=== PATIENT | female | born 1985 | race American Indian/Alaskan Native ===

== ENCOUNTER 2017-05-12 15:02 | Emergency (ER) | payer MEDICAID, OTHER ==
[2017-05-12] MEDS ORDERED: Ondansetron 4 MG/2 ML SDV IV ONE (16:35)
[2017-05-12] MEDS ORDERED: Ketorolac 30 MG/ML SDV IVPUSH ONE (16:35)
[2017-05-12] MEDS ORDERED: Sodium Chloride 0.9% 10 ML Syringe FLUSH PRN (16:35)
[2017-05-12] MEDS ORDERED: diphenhydrAMINE 50 MG/ML SDV IVPUSH ONE (16:35)
[2017-05-12] MEDS ORDERED: Sodium Chloride 0.9% 1,000 ML IV ONE (16:35)
--- NOTE | 2017-05-12 16:36 | EDM.PDOC ---
ED HPI GENERAL MEDICAL PROBLEM - General Chief Complaint: Abdominal Pain Stated Complaint: ABD PAINS, GALLBLADDER, [id number] Time Seen by Provider: 05/12/17 16:25 Source of Information: Reports: Patient History Limitations: Reports: No Limitations - History of Present Illness INITIAL COMMENTS - FREE TEXT/NARRATIVE: Patient comes emergency Department today with complaints of a gallbladder attack. She has noted over the past 2 days to have right upper quadrant pain which is been intermittent but now is constant today. At some nausea and vomited last night a couple of times. No vomiting today. No diarrhea or hematochezia. No black or tarry stools. She does have a history of cholelithiasis. Her last attack was approximately November of last year. She does complain of a subjective fever and chills. She did not check her temperature. She has not taken anything for pain. She denies chest pain towards breath difficulty breathing. Her right upper quadrant pain does radiate to her back on the right side. She denies any hematuria dysuria or urinary frequency. - Related Data Allergies Allergy/AdvReac Type Severity Reaction Status Date / Time No Known Allergies Allergy Verified 12/14/16 13:55 Home Meds: Home Meds PNV95/Ferrous Fumarate/FA [ Tablet] 1 tab PO DAILY 12/14/16 [History] Past Medical History - Past Health History Medical/Surgical History: Denies Medical/Surgical History Gastrointestinal History: Reports: [employer]ICAL DIRECTOR History: Reports: Other OB/BYN History: large uterine window - Past Surgical History Female Surgical History: Reports: Section Social & Family History - Tobacco Use Smoking Status *Q: Current Every Day Smoker Years of Tobacco use: 10 Packs/Tins Daily: 0.5 Used Tobacco, but Quit: No Second Hand Smoke Exposure: Yes - Alcohol Use Days Per Week of Alcohol Use: 0 Number of Drinks Per Day: 6 Total Drinks Per Week: 0 - Recreational Drug Use Recreational Drug Use: Yes Drug Use in Last 12 Months: Yes Recreational Drug Type: Reports: Methamphetamine Recreational Drug Use Frequency: Patient Refuses To Answer - Living Situation & Occupation Living situation: Reports: with Family Occupation: Employed ED ROS GENERAL - Review of Systems Review Of Systems: ROS reveals no pertinent complaints other than HPI. ED EXAM, GI/ABD - Physical Exam Exam: See Below Exam Limited By: No Limitations General Appearance: Alert, WD/WN, Mild Distress Ears: Normal External Exam Nose: Normal Inspection Throat/Mouth: Normal Inspection, Normal Lips Head: Atraumatic, Normocephalic Neck: Normal Inspection, Supple Respiratory/Chest: No Respiratory Distress, Lungs Clear, Normal Breath Sounds, No Accessory Muscle Use Cardiovascular: Normal Peripheral Pulses, Regular Rate, Rhythm GI/Abdominal Exam: Soft, No Organomegaly, No Distention, No Abnormal Bruit, Tender (Tenderness to the right upper quadrant with positive Mehta sign.). No : Normal Bowel Sounds (Hypoactive), Guarding, Rigid, Rebound, Hernia (Female) Exam: Deferred Rectal (Female) Exam: Deferred Back Exam: Normal Inspection, Full Range of Motion. No: CVA Tenderness (L), CVA Tenderness (R) Extremities: Normal Inspection, Normal Range of Motion, Non-Tender, Normal Capillary Refill Neurological: Alert, Oriented, CN II-XII Intact, Normal Reflexes Psychiatric: Normal Affect, Normal Mood Skin Exam: Warm, Dry, Intact, Normal Color, No Rash Lymphatic: No Adenopathy Course - Vital Signs Last Recorded V/S: Last Vital Signs Temp 37.1 C 05/12/17 16:55 Pulse 89 05/12/17 16:55 Resp 18 05/12/17 16:55 BP 125/65 05/12/17 16:55 Pulse Ox 99 05/12/17 16:55 - Orders/Labs/Meds Orders: Active Orders 24 hr Category Date Time Status Peripheral IV Care [RC] . DIRECTED Care 05/12/17 16:36 Active UA W/MICROSCOPIC [URIN] Stat Lab 05/12/17 16:19 Results Sodium Chloride 0.9% [Saline Flush] Med 05/12/17 16:35 Active 10 ml FLUSH ASDIRECTED PRN Peripheral IV Insertion Adult [OM.PC] Stat Oth 05/12/17 16:35 Ordered Medication Orders Sodium Chloride (Saline Flush) 10 ml FLUSH ASDIRECTED PRN PRN Reason: Keep Vein Open Labs: Laboratory Tests 05/12/17 05/12/17 05/12/17 Range/Units 16:19 17:08 17:08 WBC 6.7 (5.0-10.0) 10^3/uL RBC 4.81 (4.2-5.4) 10^6/uL Hgb 11.9 L (12.0-16.0) g/dL Hct 35.9 L (37.0-47.0) % MCV 74.6 L D (80-100) fL MCH 24.7 L (27.0-34.0) pg MCHC 33.1 (33.0-35.0) g/dL Plt Count 324 (150-450) 10^3/uL Neut % (Auto) 53.7 (42.2-75.2) % Lymph % (Auto) 38.4 (20.5-50.1) % [place] % (Auto) 6.6 (2-8) % Eos % (Auto) 1.0 (1.0-3.0) % Baso % (Auto) 0.3 (0.0-1.0) % Sodium 137 (135-145) mmol/L Potassium 3.5 L (3.6-5.0) mmol/L Chloride 104 (101-111) mmol/L Carbon Dioxide 24.0 (21.0-31.0) mmol/L Anion Gap 12.5 BUN 7 (7-18) mg/dL Creatinine 0.6 (0.6-1.3) mg/dL Est Cr Clr Drug Dosing 113.41 mL/min Estimated GFR (MDRD) > 60 BUN/Creatinine Ratio 11.66 Glucose 109 H (74-105) mg/dL Calcium 9.4 (8.4-10.2) mg/dl Total Bilirubin 0.4 (0.2-1.0) mg/dL AST 62 H (10-42) IU/L ALT 63 H (10-60) IU/L Alkaline Phosphatase 103 (42-121) IU/L C-Reactive Protein (0.0-1.3) mg/dL Total Protein 7.9 (6.7-8.2) g/dl Albumin 4.0 (3.2-5.5) g/dl Globulin 3.9 Albumin/Globulin Ratio 1.03 Lipase 28 (22-51) U/L Urine Color Yellow (YELLOW) Urine Appearance Clear (CLEAR) Urine pH 5.5 (5.0-9.0) Ur Specific [place] 1.020 (1.005-1.030) Urine Protein Negative (NEGATIVE) Urine Glucose (UA) Negative (NEGATIVE) Urine Ketones Negative (NEGATIVE) Urine Occult Blood Moderate H (NEGATIVE) Urine Nitrite Negative (NEGATIVE) Urine Bilirubin Negative (NEGATIVE) Urine Urobilinogen 0.2 (0.2-1.0) mg/dL Ur Leukocyte Esterase Negative (NEGATIVE) 05/12/17 Range/Units 17:08 WBC (5.0-10.0) 10^3/uL RBC (4.2-5.4) 10^6/uL Hgb (12.0-16.0) g/dL Hct (37.0-47.0) % MCV (80-100) fL MCH (27.0-34.0) pg MCHC (33.0-35.0) g/dL Plt Count (150-450) 10^3/uL Neut % (Auto) (42.2-75.2) % Lymph % (Auto) (20.5-50.1) % [place] % (Auto) (2-8) % Eos % (Auto) (1.0-3.0) % Baso % (Auto) (0.0-1.0) % Sodium (135-145) mmol/L Potassium (3.6-5.0) mmol/L Chloride (101-111) mmol/L Carbon Dioxide (21.0-31.0) mmol/L Anion Gap BUN (7-18) mg/dL Creatinine (0.6-1.3) mg/dL Est Cr Clr Drug Dosing mL/min Estimated GFR (MDRD) BUN/Creatinine Ratio Glucose (74-105) mg/dL Calcium (8.4-10.2) mg/dl Total Bilirubin (0.2-1.0) mg/dL AST (10-42) IU/L ALT (10-60) IU/L Alkaline Phosphatase (42-121) IU/L C-Reactive Protein 0.5 (0.0-1.3) mg/dL Total Protein (6.7-8.2) g/dl Albumin (3.2-5.5) g/dl Globulin Albumin/Globulin Ratio Lipase (22-51) U/L Urine Color (YELLOW) Urine Appearance (CLEAR) Urine pH (5.0-9.0) Ur Specific [place] (1.005-1.030) Urine Protein (NEGATIVE) Urine Glucose (UA) (NEGATIVE) Urine Ketones (NEGATIVE) Urine Occult Blood (NEGATIVE) Urine Nitrite (NEGATIVE) Urine Bilirubin (NEGATIVE) Urine Urobilinogen (0.2-1.0) mg/dL Ur Leukocyte Esterase (NEGATIVE) Meds: Medications Generic Name Dose Route Start Last Admin Trade Name Freq PRN Reason Stop Dose Admin Sodium Chloride 10 ml 05/12/17 16:35 Saline Flush FLUSH ASDIRECTED PRN Keep Vein Open Discontinued Medications Generic Name Dose Route Start Last Admin Trade Name Freq PRN Reason Stop Dose Admin Al Hydroxide/Mg Hydroxide 30 ml 05/12/17 16:42 05/12/17 17:14 Gi Cocktail PO 05/12/17 16:43 30 ml ONETIME ONE Administration Diphenhydramine HCl 25 mg 05/12/17 16:35 05/12/17 17:11 Benadryl IVPUSH 05/12/17 16:36 25 mg ONETIME ONE Administration Sodium Chloride 1,000 mls @ 999 mls/hr 05/12/17 16:35 05/12/17 17:12 Normal Saline IV 05/12/17 17:35 999 mls/hr .BOLUS ONE Administration Ketorolac Tromethamine 30 mg 05/12/17 16:35 05/12/17 17:15 Toradol IVPUSH 05/12/17 16:36 30 mg ONETIME ONE Administration Ondansetron HCl 4 mg 05/12/17 16:35 05/12/17 17:14 Zofran IV 05/12/17 16:36 4 mg ONETIME ONE Administration - Re-Assessments/Exams Free Text/Narrative Re-Assessment/Exam: 05/12/17 16:42 IV normal saline 1 L wide open. Benadryl 25 mg IV push. Ketorolac 30 mg IV push. Zofran 4 mg IV push. GI cocktail. 05/12/17 17:20 Care of this patient transfered to [facility] DNP/AIR PURIFIER SERVICER at this time. 05/12/17 18:31 Following the above therapy the patient was sleeping quietly on the cot. SHe was without complaints. NO ABD pain nausea or vomiting. She is currently having her period explaining the present of blood in her urine. WBC okay. Mild elevation of enzymes although normal dane. Will discharge home with follow up with primary care provider. Departure - Departure Time of Disposition: 18:33 Disposition: Home, Self-Care 01 Clinical Impression: Gallbladder attack, Biliary colic - Discharge Information Instructions: Pain Medicine Instructions, [id number], Cholelithiasis, Easy-to -Read Forms: ED Department Discharge Additional Instructions: TYlenol and or ibuprofen as needed for pain. If pain not controlled with above. [place] 5/325, 1 tablet every 6 hrs prn pain. Caution sedation. RX given to patient, #12. Stay away from fatty or spicy foods. Continue your omeprazole at home. Return to the ED if new or worsening symptoms. Follow up with primary care provider in the next week for recheck and possible [place] scan and surgery referral. - My Orders Last 24 Hours: My Active Orders 05/12/17 16:35 Sodium Chloride 0.9% [Saline Flush] 10 ml FLUSH ASDIRECTED PRN Peripheral IV Insertion Adult [OM.PC] Stat 05/12/17 16:36 Peripheral IV Care [RC] . DIRECTED - Assessment/Plan Last 24 Hours: My Active Orders 05/12/17 16:35 Sodium Chloride 0.9% [Saline Flush] 10 ml FLUSH ASDIRECTED PRN Peripheral IV Insertion Adult [OM.PC] Stat 05/12/17 16:36 Peripheral IV Care [RC] . DIRECTED Assessment:: Biliary colic gall badder attack. Hx of Cholelithiais Plan: TYlenol and or ibuprofen as needed for pain. If pain not controlled with above. [place] 5/325, 1 tablet every 6 hrs prn pain. Caution sedation. RX given to patient, #12. Stay away from fatty or spicy foods. Continue your omeprazole at home. Return to the ED if new or worsening symptoms. Follow up with primary care provider in the next week for recheck and possible [place] scan and surgery referral.
[2017-05-12] MEDS ORDERED: GI Cocktail Oral Solution 30 ML PO ONE (16:42)
[2017-05-12 17:40] VITALS: BP 125/65
[2017-05-12 17:46] LABS: CHLORIDE,CL 104 mmol/L (101-111); SODIUM,NA 137 mmol/L (135-145)
== END 2017-05-12 18:52 | disposition home or self-care (01) ==
LOC: DL.ED 15:02
DX: K80.50 Calculus of bile duct without cholangitis or cholecystitis without obstruction (principal); F17.210 Nicotine dependence, cigarettes, uncomplicated
CPT/HCPCS: 36415; 80053; 81001; 83690; 85025; 86140; 96361; 96374; 96375; 99283; A9270; J1200; J1885; J2405; J7030; 36410

== ENCOUNTER 2020-10-21 20:42 | Emergency (ER) | payer BC, MEDICAID | END 2020-10-21 22:02 | disposition left against medical advice (07) | LOC: DL.ED 20:42 | DX: Z53.21 Procedure and treatment not carried out due to patient leaving prior to being seen by health care provider (principal) ==

== ENCOUNTER 2024-07-03 08:10 | Emergency (ER) | payer BC, MEDICAID ==
[2024-07-03 08:30] VITALS: BP 147/87; PULSE 80
[2024-07-03] MEDS: Ketorolac 30 MG/ML SDV IM ONE (10:12)
== END 2024-07-03 12:50 | disposition home or self-care (01) ==
LOC: DL.ED 08:10
DX: S20.211A Contusion of right front wall of thorax, initial encounter (principal); Y04.8XXA Assault by other bodily force, initial encounter
CPT/HCPCS: 71101; 96372; 99284; J1885

== ENCOUNTER 2024-09-06 09:56 | Emergency (ER) | payer MEDICAID ==
[2024-09-06 10:12] VITALS: BP 141/95; PULSE 106
== END 2024-09-06 10:30 | disposition home or self-care (01) ==
LOC: DL.ED 09:56
DX: S01.85XA Open bite of other part of head, initial encounter (principal); Y04.1XXA Assault by human bite, initial encounter
CPT/HCPCS: 99283